=== PATIENT | male | born 1965 | race Caucasian/White ===

== ENCOUNTER 2017-07-12 22:30 | Emergency (ER) | payer OTHER ==
[~2017-07-12] VITALS: Ht 177.8 cm; Wt 77.3 kg
[2017-07-12 22:32] VITALS: BP 127/74
== END 2017-07-13 00:36 | disposition home or self-care (01) ==
LOC: ER 22:31
DX: G89.29 Other chronic pain (principal); M54.6 Pain in thoracic spine; M54.5 Low back pain; Z59.0 Homelessness
CPT/HCPCS: 99283